=== PATIENT | female | born 1975 | race Two or more races ===

== ENCOUNTER 2022-01-28 02:29 | Emergency (ER) | payer OTHER ==
[2022-01-28] MEDS ORDERED: oxyCODONE HCL 5 MG TABLET PO ONE (02:32)
[2022-01-28 02:38] VITALS: BP 142/95; PULSE 112; RESP 18; TEMP 99.1; BMI 35.2
[2022-01-28] MEDS ORDERED: oxyCODONE HCL 5 MG TABLET ONE (02:38)
== END 2022-01-28 03:35 | disposition home or self-care (01) ==
LOC: EDBD → FER 02:29
PROC: 2W3CX1Z Immobilization of Right Lower Arm using Splint (ICD-10-PCS; principal; 2022-01-28)
DX: S69.91XA Unspecified injury of right wrist, hand and finger(s), initial encounter (principal); V18.0XXA Pedal cycle driver injured in noncollision transport accident in nontraffic accident, initial encounter
CPT/HCPCS: 73090-TC-RT-FY; 73110-TC-RT-FY; 99284-25